=== PATIENT | female | born 1955 | race Two or more races ===

== ENCOUNTER 2018-06-08 12:30 | Emergency (ER) | payer OTHER ==
[~2018-06-08] VITALS: Ht 165.1 cm; Wt 74.8 kg
[~2018-06-08 12:30] MED LIST: TESSALON PERLE100 MG PO; TUSSI PRES-B L120 M1 PO
[2018-06-08] MEDS ORDERED: TOPROL XL50 MG (12:58)
[2018-06-08] MEDS ORDERED: SYNTHROID50 MCG (12:59)
== END 2018-06-08 18:37 | disposition home or self-care (01) ==
LOC: ER 12:30
DX: K52.89 Other specified noninfective gastroenteritis and colitis (principal); B34.9 Viral infection, unspecified

== ENCOUNTER → 2021-01-02 | Emergency (ER) | payer OTHER ==
[~2021-01-02] VITALS: Ht 162.6 cm; Wt 78.9 kg
[~2021-01-02] MED LIST changes: +AMIODARONE HCL200 MG; +SYNTHROID50 MCG; +TOPROL XL50 MG; +XARELTO10 MG
== END | disposition left against medical advice (07) ==
LOC: ER 22:58
DX: T78.1XXA Other adverse food reactions, not elsewhere classified, initial encounter (principal); X58.XXXA Exposure to other specified factors, initial encounter; T78.49XA Other allergy, initial encounter; H57.13 Ocular pain, bilateral; J02.9 Acute pharyngitis, unspecified

== ENCOUNTER 2025-03-13 08:38 | Emergency (ER) | payer OTHER ==
[~2025-03-13] VITALS: Ht 162.6 cm; Wt 78.5 kg
[2025-03-13] MEDS ORDERED: BENZONATATE 100 MG CAPSULE PO ONE (10:00)
[2025-03-13] MEDS ORDERED: ALBUTEROL SULFATE 3 ML/2.5 MG AMPUL.NEB IH SCH (10:00)
[2025-03-13] MEDS ORDERED: PREDNISONE 20 MG TABLET PO ONE (10:00)
[2025-03-13 11:24] LABS: BASO % 0.4 % (0.1-1.2); EOS # 0.03 (0.04-0.54); EOS % 0.3 % (0.7-7.0); LYMPH # 1.40 (1.18-3.74); LYMPH % 13.6 % (19.3-53.1); MEAN PLATELET VOLUME 11.10 fl (9.4-12.4); MONO # 0.65 (0.24-0.82); MONO % 6.3 % (4.7-12.5); NEUT # 8.12 (1.56-6.13); NEUT % 78.7 % (34.0-71.1); RED CELL DISTRIBUTION WIDTH 13.4 % (11.6-14.4)
[2025-03-13] MEDS ORDERED: ALBUTEROL SULFATE 3 ML/2.5 MG AMPUL.NEB IH ONE (11:30)
[2025-03-13] MEDS ORDERED: LEVALBUTEROL HCL 0.63 MG/3 ML SOLUTION IH ONE (11:40)
[2025-03-13 12:00] LABS: COVID-19 AG NEGATIVE (NEGATIVE)
[2025-03-13] MEDS ORDERED: LEVALBUTEROL HCL 0.63 MG/3 ML SOLUTION IH SCH (12:00)
[2025-03-13 12:08] LABS: BUN CREA RATIO 23.0 (7.0-25.0); CREATININE SERUM 1.08 mg/dL (0.55-1.02); GFR 50.01; GLUCOSE FASTING 100.0 mg/dL (65-100); OSMOLALITY SERUM 284.0 MOSM/KG (275-295)
== END 2025-03-13 13:23 | disposition home or self-care (01) ==
LOC: ER 08:38
PROVIDERS: Emergency Medicine
DX: J45.901 Unspecified asthma with (acute) exacerbation (principal); R05.9 Cough, unspecified; Z20.822 Contact with and (suspected) exposure to COVID-19; E03.8 Other specified hypothyroidism; Z88.2 Allergy status to sulfonamides; Z88.6 Allergy status to analgesic agent